=== PATIENT | female | born 1960 | race Caucasian/White ===

== ENCOUNTER 2016-06-29 15:20 | Emergency (ER) | payer BC ==
[~2016-06-29] VITALS: Ht 170.2 cm; Wt 60.0 kg
[2016-06-29 15:21] VITALS: BP 110/74; PULSE 82; RESP 22; TEMP 98.1; O2SAT 92
--- NOTE | 2016-06-29 21:55 | EKG ---
Date Performed: 06/29/2016 Time Performed: 15:59:35 PTAGE: 55 years EKG: Sinus rhythm MARKED RIGHT AXIS DEVIATION RIGHT BUNDLE BRANCH BLOCK ABNORMAL ECG NO PREVIOUS TRACING DOCTOR: Raz Freeman Interpretating Date/Time 06/29/2016 21:55:37
== END 2016-06-29 17:38 | disposition left against medical advice (07) ==
LOC: NED 15:20
DX: R06.02 Shortness of breath (principal); R94.31 Abnormal electrocardiogram [ECG] [EKG]; Z53.21 Procedure and treatment not carried out due to patient leaving prior to being seen by health care provider
CPT/HCPCS: 93005; 99281